=== PATIENT | female | born 1935 | race Caucasian/White ===

== ENCOUNTER → 2018-09-11 08:10 | Outpatient (CLI) | payer MEDICARE, SELFPAY ==
[2018-09-11 08:55] LABS: Hemoglobin A1C% w Est Avg Glu 6.7 % (4.0-6.0)
[2018-09-11 09:14] LABS: Creatinine Urine Random 90.2 mg/dL
[2018-09-11 09:19] LABS: Microalbumi Creatinin Ratio Ur 9.9 ug/mg CR (<30); Microalbumin Urine Random 0.9 mg/dL (0-1.6)
[2018-09-11 09:23] LABS: BUN Creatinine Ratio 14.7 (6-22); Blood Urea Nitrogen 22 mg/dL (7-17); Calcium 9.6 mg/dL (8.4-10.2); Carbon Dioxide 24 mmol/L (22-32); Chloride 107 mmol/L (98-107); Estimated Glomerular Filt Rate 33.2 mL/min (>60); Glucose 120 mg/dL (80-110); HEMOLYSIS < 15 (0-50); Potassium 5.1 mmol/L (3.4-5.1); Sodium 141 mmol/L (137-145)
[2018-09-11 09:44] LABS: TSH w/ Reflex to FT4 1.64 uIU/mL (0.47-4.68)
== END ==
PROVIDERS: PCP Family Medicine; Visit Provider Family Medicine
DX: E11.9 Type 2 diabetes mellitus without complications (principal); R53.82 Chronic fatigue, unspecified
CPT/HCPCS: 36415; 80048; 82043; 82570; 83036; 84443

== ENCOUNTER → 2018-11-10 12:57 | Outpatient (CLI) | payer OTHER, SELFPAY ==
--- NOTE | 2018-11-10 | DI.MG.S_ITS ---
BILATERAL DIGITAL SCREENING MAMMOGRAM 3D/2D WITH CAD POST LUMPECTOMY: 11/10/2018 CLINICAL: Routine screening. Personal history of left breast cancer. Family history of breast cancer. Comparison is made to exams dated: 10/21/2017 mammogram, 10/18/2016 mammogram, and 10/15/2015 mammogram - Located [facility]. The tissue of both breasts is heterogeneously dense. This may lower the sensitivity of mammography. Current study was also evaluated with a Computer Aided Detection (CAD) system. There are benign post operative findings in the left breast. There also are benign calcifications in both breasts. No significant masses, calcifications, or other findings are seen in either breast. There has been no significant interval change. IMPRESSION: There is no mammographic evidence of malignancy. A 1 year screening mammogram is recommended. This exam was interpreted at Station ID: [id number]. NOTE: For mammograms, a report in lay terms will be sent to the patient. Approximately 15% of breast malignancies will not be visualized mammographically. In the management of a palpable breast mass, a negative mammogram must not discourage biopsy of a clinically suspicious lesion. Electronically Signed By: Rojas mercado/marta:11/10/2018 14:07:27 copy to: Huy Christie letter sent: Normal Exam ACR BI-RADS Category 2: Benign Finding(s) 3342F
== END ==
PROVIDERS: PCP Family Medicine; Visit Provider Family Medicine
DX: Z12.31 Encounter for screening mammogram for malignant neoplasm of breast (principal); Z85.3 Personal history of malignant neoplasm of breast; Z80.3 Family history of malignant neoplasm of breast
CPT/HCPCS: 77063; 77067

== ENCOUNTER → 2019-02-20 16:45 | Outpatient (CLI) | payer OTHER, SELFPAY | PROVIDERS: PCP Family Medicine; Visit Provider Nurse Practitioner | DX: R30.0 Dysuria (principal) | CPT/HCPCS: 87077; 87086; 87185; 87186 ==

== ENCOUNTER → 2019-03-07 15:08 | Outpatient (CLI) | payer OTHER, SELFPAY ==
[2019-03-07 15:36] LABS: Add Manual Diff / Slide Review NO; Basophils Absolute Auto 0 /uL (0-100); Basophils Percent Auto 0.5 % (0-2); Eosinophils Absolute Auto 200 /uL (0-450); Eosinophils Percent Auto 2.7 % (2-4); Hemoglobin 12.2 g/dL (12.0-16.0); Lymphocytes Absolute Auto 1200 /uL (1100-4500); Lymphocytes Percent Auto 15.5 % (25-40); Mean Corpuscular Hemoglobin 28.7 PG (26-34); Mean Corpuscular Volume 86.9 fL (80-100); Monocytes Absolute Auto 500 /uL (0-900); Neutrophils Absolute Auto 5700 /uL (1500-7000); Neutrophils Percent Auto 74.3 % (50-75); Platelet Count 188 X10^3/uL (150-400); Red Blood Cell Count 4.26 X10^6/uL (4.0-5.2); Red Cell Distribution Width 13.8 % (11.6-14.8); White Blood Cell Count 7.7 X10^3/uL (4.5-11.0)
[2019-03-07 15:49] LABS: Alanine Aminotransferase 15 IU/L (9-52); Albumin 4.3 g/dL (3.5-5.0); Albumin Globulin Ratio 1.5 (1.0-2.8); Alkaline Phosphatase 54 U/L (38-126); Aspartate Aminotransferase 24 IU/L (14-36); BUN Creatinine Ratio 17.9 (6-22); Bilirubin Total 0.5 mg/dL (0.2-1.3); Blood Urea Nitrogen 34 mg/dL (7-17); Calcium 9.5 mg/dL (8.4-10.2); Carbon Dioxide 22 mmol/L (22-32); Chloride 108 mmol/L (98-107); Creatine Kinase 123 U/L (30-135); Estimated Glomerular Filt Rate 25.2 mL/min (>60); Globulin 2.8 g/dL (1.7-4.1); Glucose 98 mg/dL (80-110); HEMOLYSIS < 15 (0-50); Potassium 4.3 mmol/L (3.4-5.1); Sodium 143 mmol/L (137-145); Total Protein 7.1 g/dL (6.3-8.2)
[2019-03-07 16:01] LABS: Troponin I < 0.012 ng/mL (0.01-0.034)
[2019-03-07 16:05] LABS: CKMB % Relative Index 1.5 % (1.5-5.0); Creatine Kinase MB 1.86 ng/mL (<2.37)
== END ==
PROVIDERS: PCP Family Medicine; Visit Provider Family Medicine
DX: R07.9 Chest pain, unspecified (principal); R94.31 Abnormal electrocardiogram [ECG] [EKG]
CPT/HCPCS: 36415; 80053; 82550; 82553; 84484; 85025

== ENCOUNTER → 2019-07-19 11:57 | Outpatient (CLI) | payer OTHER, SELFPAY ==
[2019-07-19 12:43] LABS: Hemoglobin A1C% w Est Avg Glu 6.2 % (4.0-6.0)
== END ==
PROVIDERS: PCP Family Medicine; Visit Provider Family Medicine
DX: E11.9 Type 2 diabetes mellitus without complications (principal)
CPT/HCPCS: 36415; 83036

== ENCOUNTER → 2020-05-20 14:32 | Outpatient (CLI) | payer OTHER, SELFPAY ==
[2020-05-20 15:47] LABS: Hemoglobin A1C% w Est Avg Glu 6.6 % (4.0-6.0)
[2020-05-20 15:51] LABS: Alanine Aminotransferase 14 IU/L (<35); Albumin 4.4 g/dL (3.5-5.0); Albumin Globulin Ratio 1.6 (1.0-2.8); Alkaline Phosphatase 56 U/L (38-126); Aspartate Aminotransferase 23 IU/L (14-36); Bilirubin Total 0.5 mg/dL (0.2-1.3); Blood Urea Nitrogen 33 mg/dL (7-17); Calcium 9.4 mg/dL (8.4-10.2); Carbon Dioxide 23 mmol/L (22-32); Chloride 108 mmol/L (98-107); Estimated Glomerular Filt Rate 29.6 mL/min (>60); Globulin 2.7 g/dL (1.7-4.1); Glucose 127 mg/dL (80-110); HEMOLYSIS < 15 (0-50); Potassium 4.9 mmol/L (3.4-5.1); Sodium 137 mmol/L (137-145); Total Protein 7.1 g/dL (6.3-8.2)
[2020-05-20 20:10] LABS: Creatinine Urine Random 124.6 mg/dL
[2020-05-20 20:15] LABS: Microalbumi Creatinin Ratio Ur 8.8 ug/mg CR (<30); Microalbumin Urine Random 1.1 mg/dL (0-1.6)
== END ==
PROVIDERS: PCP Family Medicine; Referring Provider Family Medicine; Visit Provider Family Medicine
DX: E11.9 Type 2 diabetes mellitus without complications (principal)
CPT/HCPCS: 36415; 80053; 82043; 82570; 83036

== ENCOUNTER 2020-06-14 19:55 | Emergency (ER) | payer OTHER, SELFPAY ==
[2020-06-14 20:01] VITALS: BP 176/88; PULSE 86; RESP 18; TEMP 36.8; O2SAT 98; BMI 26.7
--- NOTE | 2020-06-14 20:05 | ED_ITS ---
HPI - Eye Problem <SEMAJ Hebert - Last Filed: 06/14/20 21:04> General Chief complaint: Eye Problems Stated complaint: contact stuck in right eye since last night Time Seen by Provider: 06/14/20 19:55 Source: patient Mode of arrival: Ambulatory Limitations: no limitations History of Present Illness HPI Narrative: 84yo female presents emergency department complaining of a contact stuck in her right eye. She states she only wears a contact in her right eye, she has fallen asleep on a chair the past 3 nights without removing her contacts. She went to removed today and was unable to get it out. She states she can still read normally so she thinks it is still in there. Patient states she has been irrigating the eye with saline a which has decreased the redness but she is still unable to get the contact out. Patient denies any fevers, chills, double vision, blurry vision, eye discharge, cough, shortness of breath, or any other concerns. Related Data Home Medications Medication Instructions Recorded Confirmed [CoQ10] #0 08/30/16 05/20/20 [MELATONIN] #0 08/30/16 05/20/20 azelastine 0.15 % (205.5 mcg) 1 spray NASAL BID 01/10/19 05/20/20 nasal spray omeprazole PO BID 01/10/19 05/20/20 triamcinolone acetonide 55 mcg 1 spray NASAL BID ml 01/10/19 05/20/20 nasal spray aerosol albuterol sulfate 90 mcg/actuation 1 puff INHALATION Q6H PRN 10/17/19 05/20/20 aerosol inhaler aspirin 81 mg tablet,delayed 81 mg PO DAILY 05/20/20 05/20/20 release Previous Rx's Medication Instructions Recorded blood sugar diagnostic #60 strip 07/13/19 rosuvastatin 10 mg tablet 10 mg PO DAILY #90 tab 02/22/20 metformin 500 mg tablet,extended See Rx Instructions .ROUTE 06/11/20 release 24 hr .COMPLEX #180 tab tobramycin 4 drop EAR-RIGHT QID 5 Days #5 ml 06/14/20 Allergies Allergy/AdvReac Type Severity Reaction Status Date / Time No Known Drug Allergies Allergy Verified 05/20/20 13:32 Review of Systems <SEMAJ Hebert - Last Filed: 06/14/20 21:04> Review of Systems Narrative: REVIEW OF SYSTEMS: GENERAL: Denies fever or chills. HENT: No head trauma. EYES: Complains contact and right eye, see HPI. NECK/LYMPHATIC: No lymphadenopathy. CARDIOVASCULAR: No chest pain. RESPIRATORY: No cough or shortness of breath. INTEGUMENTARY: No rash, lesions, or pruritus. NEURO: No headaches or confusion. Patient History <SEMAJ Hebert - Last Filed: 06/14/20 21:04> Medical History Asthma (Chronic) Chicken pox (Resolved) Depression (Inactive) DM type 2 (diabetes mellitus, type 2) (Chronic) Foot pain (Resolved) Hyperlipidemia (Chronic) Measles (Resolved) Measles (Resolved) Mumps (Inactive) Mumps (Resolved) Seasonal allergies (Chronic) Shoulder pain (Resolved) Varicella (Resolved) Vision disorder (Chronic) Surgical History Anesthesia (Resolved) H/O knee surgery (Resolved) History of hip surgery (Resolved) Hx of breast cancer (Inactive) Family History Father Heart disease Mother Cancer Stroke Dementia Brother COPD (chronic obstructive pulmonary disease) Diabetes mellitus Stroke Dementia Brother Stroke Diabetes mellitus Social History marital status: number of children: 2 household members: spouse lives independently: Yes caregiver/support person: No pets and animals: No education level: college (some college) occupational status: previously employed (retired) current occupational exposures/hazards: No raul/sabianist: [employer] special raul needs: No leisure activities: art seatbelt use: always working smoke detector in home: Yes fire extinguisher in home: No carbon monox detector in home: No firearms in home: Yes firearms unloaded and locked: Yes do you feel safe at home: Yes Smoking Status: Never smoker alcohol intake: current (rare) substance use type: does not use during the past year weight has: increased > 10 lbs well-balanced diet: daily or most days caffeine: Yes eating out: 1-3 times/week Type(s) of exercise: walking frequency: 5-6 times per week duration: 30-45 minutes/day Smoking Status: Never smoker alcohol intake frequency: holidays/special occasions only Alcohol type: wine Substance Use Type: does not use Exam <SEMAJ Hebert - Last Filed: 06/14/20 21:04> Initial Vital Signs Initial Vital Signs: Vital Signs Temperature 98.3 F 06/14/20 20:01 Pulse Rate 86 06/14/20 20:01 Respiratory Rate 18 06/14/20 20:01 Blood Pressure 176/88 H 06/14/20 20:01 Pulse Oximetry 98 06/14/20 20:01 PHYSICAL EXAMINATION: GENERAL: Well groomed, alert, and cooperative. Answers questions promptly and appropriately. Vital signs noted. HENT: Normocephalic, atraumatic. Hearing intact. Oral mucosa is pink and moist. Face features symmetrical. EYES: PERRLA, EOMIs, right conjunctiva mildly injected, small possible corneal abrasion noted at approximately 11:00 0'clock with fluorescein examination. Left eye within normal limits. CARDIOVASCULAR: Regular rate. RESPIRATORY: Normal respiratory rate, trachea midline, airway patent. No stridor, nasal flaring or accessory muscle use. MUSCULOSKELETAL: Normal gait and coordination. Equal tone and mass bilaterally. SKIN: Warm, dry, soft, appropriate color for ethnicity. NEURO: Alert and Oriented X 3. Good coordination. PSYCH: Appropriate affect and mood. <Gato Mendes DO - Last Filed: 06/15/20 01:09> Initial Vital Signs Initial Vital Signs: Vital Signs Temperature 98.3 F 06/14/20 20:01 Pulse Rate 86 06/14/20 20:01 Respiratory Rate 18 06/14/20 20:01 Blood Pressure 176/88 H 06/14/20 20:01 Pulse Oximetry 98 06/14/20 20:01 Course <SEMAJ Hebert - Last Filed: 06/14/20 21:04> Orders Ordered: Discontinued Medications Fluorescein Sodium (Ful-Arlin) 1 mg EYE-RIGHT NOW ONE Stop: 06/14/20 20:05 Last Admin: 06/14/20 20:12 Dose: 1 mg Documented by: TOMMY Gentamicin Sulfate (Garamycin Ophth Soln) 1 drops EYE-RIGHT NOW ONE Stop: 06/14/20 20:25 Last Admin: 06/14/20 20:28 Dose: Not Given Documented by: TOMMY Gentamicin Sulfate (Garamycin 0.3% Ophth Prepack) 1 bottle MISC SEEINSTR ONE Stop: 06/14/20 20:28 Last Admin: 06/14/20 20:31 Dose: 1 bottle Documented by: TOMMY Proparacaine HCl (Parcaine 0.5% Ophth Christy) 1 drops EYE-RIGHT NOW ONE Stop: 06/14/20 20:05 Last Admin: 06/14/20 20:13 Dose: 1 drop Documented by: TOMMY Tobramycin Sulfate (Tobramycin) 2 drops EYE-RIGHT NOW ONE Stop: 06/14/20 20:18 Last Admin: 06/14/20 20:27 Dose: Not Given Documented by: TOMMY Vital Signs Vital signs: Vital Signs - 8 hr 06/14/20 20:01 Temperature 98.3 F Pulse Rate 86 Respiratory Rate 18 Blood Pressure 176/88 H Pulse Oximetry 98 <Gato Mendes DO - Last Filed: 06/15/20 01:09> Orders Ordered: Discontinued Medications Fluorescein Sodium (Ful-Arlin) 1 mg EYE-RIGHT NOW ONE Stop: 06/14/20 20:05 Last Admin: 06/14/20 20:12 Dose: 1 mg Documented by: TOMMY Gentamicin Sulfate (Garamycin Ophth Soln) 1 drops EYE-RIGHT NOW ONE Stop: 06/14/20 20:25 Last Admin: 06/14/20 20:28 Dose: Not Given Documented by: TOMMY Gentamicin Sulfate (Garamycin 0.3% Ophth Prepack) 1 bottle MISC SEEINSTR ONE Stop: 06/14/20 20:28 Last Admin: 06/14/20 20:31 Dose: 1 bottle Documented by: TOMMY Proparacaine HCl (Parcaine 0.5% Ophth Christy) 1 drops EYE-RIGHT NOW ONE Stop: 06/14/20 20:05 Last Admin: 06/14/20 20:13 Dose: 1 drop Documented by: TOMMY Tobramycin Sulfate (Tobramycin) 2 drops EYE-RIGHT NOW ONE Stop: 06/14/20 20:18 Last Admin: 06/14/20 20:27 Dose: Not Given Documented by: TOMMY Vital Signs Vital signs: Vital Signs - 8 hr 06/14/20 20:01 Temperature 98.3 F Pulse Rate 86 Respiratory Rate 18 Blood Pressure 176/88 H Pulse Oximetry 98 [facility] - Eye Problem <SEMAJ Hebert - Last Filed: 06/14/20 21:04> Medical Records Attestation: I reviewed the patient's medical records. Lab Data Attestation: I reviewed the patient's lab results. MDM Narrative Medical decision making narrative: 84-year-old female presents to the ED with concerns of a contact being stuck in her right eye. Contact removed manually. Concerns for corneal abrasion with fluorescein examination, patient started on gentamicin as this was available in the facility at this time. No concerns for ocular cellulitis given lack of discharge and EOM intact. Patient was encouraged to follow up with the eye doctor in the next week. Return precautions given for new or worsening symptoms. She agrees to plan of care verbalized understanding. Discharge Plan Departure Patient Disposition: Home Clinical Impression: Abrasion, corneal Qualifiers: Encounter type: initial encounter Laterality: right Qualified Code(s): S05.01XA - Injury of conjunctiva and corneal abrasion without foreign body, right eye, initial encounter Discharge Date/Time: 06/14/20 20:49 Instructions: DI for Corneal Abrasion Activity Restrictions/Additional Instructions: Thank you for entrusting me with your care today. As discussed, your contact was removed. Your exam was concerning for a corneal abrasion. I have given you antibiotic drops, please use this as directed. Do not wear contacts for the next 1-2 weeks. Your prescription was sent to [facility] in [place]. Follow up with your eye doctor in the next week, call them on Tuesday for an appointment. Return emergency department for any new or worsening symptoms. Prescriptions: New tobramycin 0.3 % drops 4 drop EAR-RIGHT QID 5 Days Qty: 5 RF: 0 No Action omeprazole PO BID RF: 0 azelastine 0.15 % (205.5 mcg) spray,non-aerosol 1 spray NASAL BID RF: 0 triamcinolone acetonide [Nasacort] 55 mcg aerosol,spray 1 spray NASAL BID RF: 0 aspirin [Adult Aspirin Regimen] 81 mg tablet,delayed release (DR/EC) 81 mg PO DAILY RF: 0 [CoQ10] Qty: 0 RF: 0 [MELATONIN] Qty: 0 RF: 0 (DME) [employer] test strips Strip See Dose Instructions .ROUTE .MEDSUPPLY Qty: 60 RF: 5 rosuvastatin [Crestor] 10 mg tablet 10 mg PO DAILY Qty: 90 RF: 1 metformin 500 mg tablet extended release 24 hr See Rx Instructions .ROUTE .COMPLEX Qty: 180 RF: 3 albuterol sulfate [ProAir HFA] 90 mcg/actuation HFA aerosol inhaler 1 puff INHALATION Q6H PRNRF: 0 Referrals: Nusrat Abdi MD [Primary Care Provider] - <Gato Mendes DO - Last Filed: 06/15/20 01:09> Cosign ED Attending Cosignature Attestation: I was immediately available in the department for consultation. This documentation has been reviewed and I agree with assessment and plan. Supervised by Gato Mendes DO
[2020-06-14] MEDS: FLUORESCEIN 1 MG STRIP EYE-RIGHT (20:12)
[2020-06-14] MEDS: PROPARACAINE 0.5% OPHTH SOL 1 DROPS EYE-RIGHT (20:13)
[2020-06-14] MEDS: GENTAMICIN 0.3% OPHTH PREPACK 1 BOTTLE MISC (20:31)
== END 2020-06-14 20:49 | disposition home or self-care (01) ==
PROVIDERS: Emergency Provider Nurse Practitioner; PCP Family Medicine
DX: S05.01XA Injury of conjunctiva and corneal abrasion without foreign body, right eye, initial encounter (principal)
CPT/HCPCS: 99282

== ENCOUNTER → 2020-07-15 13:59 | Outpatient (CLI) | payer OTHER, SELFPAY ==
[2020-07-17 07:27] LABS: COVID19 Sendout Not Detected (Not Detect)
== END ==
PROVIDERS: PCP Family Medicine; Visit Provider Physician Assistant
DX: J02.9 Acute pharyngitis, unspecified (principal); R05 Cough
CPT/HCPCS: 87635

== ENCOUNTER → 2020-11-12 15:14 | Outpatient (CLI) | payer OTHER, SELFPAY ==
[2020-11-12 16:06] LABS: Appearance Urine UA SL CLOUDY; Bilirubin Urine UA NEGATIVE (NEGATIVE); Color Urine UA YELLOW; Glucose Urine UA NEGATIVE (Negative); Ketones Urine UA NEGATIVE (NEGATIVE); Leukocyte Esterase Urine UA 3+ (NEGATIVE); Nitrite Urine UA NEGATIVE (Negative); Occult Blood Urine UA TRACE-LYSED (Negative); Protein Urine UA NEGATIVE (Negative); Urobilinogen Urine UA 0.2 E.U./dL (0.2)
[2020-11-12 16:09] LABS: Hemoglobin A1C% w Est Avg Glu 6.8 % (4.0-6.0)
[2020-11-12 16:18] LABS: Bacteria Urine Many (>30); Culture Indicated Urine Specimen Cultured; RBC Urine 0-1/HPF (0-5/HPF); Squamous Epithelial Cell Urine 0-1 /HPF (0-5/HPF); WBC Urine 10-30/HPF (0-5/HPF)
== END ==
PROVIDERS: PCP Family Medicine; Referring Provider Family Medicine; Visit Provider Family Medicine
DX: E11.9 Type 2 diabetes mellitus without complications (principal); R30.0 Dysuria
CPT/HCPCS: 36415; 81001; 83036; 87077; 87086; 87186

== ENCOUNTER → 2020-11-19 13:14 | Outpatient (CLI) | payer MEDICARE, SELFPAY ==
[2020-11-19] MEDS: COVID-19 VACC, Ad26(JANSSEN)/PF 0.5 ML IM (13:33)
== END ==
PROVIDERS: PCP Family Medicine; Visit Provider Internal Medicine
DX: Z23 Encounter for immunization (principal)
CPT/HCPCS: 0031A; 91303

== ENCOUNTER → 2020-12-01 11:01 | Outpatient (CLI) | payer OTHER, SELFPAY | PROVIDERS: PCP Family Medicine; Referring Provider Family Medicine; Visit Provider Family Medicine | DX: Z12.31 Encounter for screening mammogram for malignant neoplasm of breast (principal); Z53.20 Procedure and treatment not carried out because of patient's decision for unspecified reasons ==

== ENCOUNTER → 2020-12-09 12:08 | Outpatient (CLI) | payer OTHER, SELFPAY ==
[2020-12-09 13:01] LABS: Hemoglobin A1C% w Est Avg Glu 6.7 % (4.0-6.0)
== END ==
PROVIDERS: PCP Family Medicine; Referring Provider Family Medicine; Visit Provider Family Medicine
DX: E11.9 Type 2 diabetes mellitus without complications (principal)
CPT/HCPCS: 36415; 83036

== ENCOUNTER → 2021-01-01 10:35 | Outpatient (CLI) | payer OTHER, SELFPAY ==
--- NOTE | 2021-01-01 | DI.MG.S_ITS ---
BILATERAL DIGITAL SCREENING MAMMOGRAM 3D/2D WITH CAD: 01/01/2021 CLINICAL: Routine screening. Family history of breast cancer. Comparison is made to exams dated: 11/10/2018 mammogram, 10/21/2017 mammogram, and 10/18/2016 mammogram - [facility]. The tissue of both breasts is heterogeneously dense. This may lower the sensitivity of mammography. Current study was also evaluated with a Computer Aided Detection (CAD) system. There are benign calcifications in both breasts. There also are benign post operative findings in the left breast. No significant masses, calcifications, or other findings are seen in either breast. There has been no significant interval change. IMPRESSION: BENIGN There is no mammographic evidence of malignancy. A 1 year screening mammogram is recommended. This exam was interpreted at Station ID: [id number]. NOTE: For mammograms, a report in lay terms will be sent to the patient. Approximately 15% of breast malignancies will not be visualized mammographically. In the management of a palpable breast mass, a negative mammogram must not discourage biopsy of a clinically suspicious lesion. Electronically Signed By: Mahesh Gonzales acr/penrad:01/01/2021 12:12:10 copy to: Huy Christie letter sent: Normal Exam ACR BI-RADS Category 2: Benign Finding(s) 3342F
== END ==
PROVIDERS: PCP Family Medicine; Referring Provider Family Medicine; Visit Provider Family Medicine
DX: Z12.31 Encounter for screening mammogram for malignant neoplasm of breast (principal)
CPT/HCPCS: 77063; 77067

== ENCOUNTER → 2021-09-14 11:23 | Outpatient (CLI) | payer OTHER, SELFPAY ==
[2021-09-14 12:31] LABS: Hemoglobin A1C% w Est Avg Glu 6.3 % (4.0-6.0)
[2021-09-14 13:18] LABS: Alanine Aminotransferase 18 IU/L (<35); Albumin 4.3 g/dL (3.5-5.0); Albumin Globulin Ratio 1.8 (1.0-2.8); Alkaline Phosphatase 53 U/L (38-126); Aspartate Aminotransferase 23 IU/L (14-36); BUN Creatinine Ratio 17.8 (6-22); Bilirubin Total 0.5 mg/dL (0.2-1.3); Blood Urea Nitrogen 28 mg/dL (7-17); Calcium 9.8 mg/dL (8.4-10.2); Carbon Dioxide 23 mmol/L (22-32); Chloride 106 mmol/L (98-107); Estimated Glomerular Filt Rate 31.3 mL/min (>60); Globulin 2.4 g/dL (1.7-4.1); Glucose 109 mg/dL (80-110); HEMOLYSIS < 15 (0-50); Potassium 4.7 mmol/L (3.4-5.1); Sodium 139 mmol/L (137-145); Total Protein 6.7 g/dL (6.3-8.2)
[2021-09-14 15:09] LABS: Creatinine Urine Random 133.9 mg/dL
[2021-09-14 15:11] LABS: Microalbumi Creatinin Ratio Ur 22.4 ug/mg CR (<30)
== END ==
PROVIDERS: PCP Family Medicine; Referring Provider Family Medicine; Visit Provider Family Medicine
DX: E11.9 Type 2 diabetes mellitus without complications (principal)
CPT/HCPCS: 36415; 80053; 82043; 82570; 83036

== ENCOUNTER → 2022-01-07 12:58 | Outpatient (CLI) | payer OTHER, SELFPAY ==
--- NOTE | 2022-01-07 | DI.MG.S_ITS ---
BILATERAL DIGITAL SCREENING MAMMOGRAM 3D/2D WITH CAD: 01/07/2022 CLINICAL: Routine screening. Personal history of left breast cancer. Family history of breast cancer. Comparison is made to exams dated: 01/01/2021 mammogram, 11/10/2018 mammogram, and 10/21/2017 mammogram - [facility]. The tissue of both breasts is heterogeneously dense. This may lower the sensitivity of mammography. Current study was also evaluated with a Computer Aided Detection (CAD) system. There are benign calcifications in both breasts. There also are benign post operative findings in the left breast. No significant masses, calcifications, or other findings are seen in either breast. There has been no significant interval change. IMPRESSION: BENIGN There is no mammographic evidence of malignancy. A 1 year screening mammogram is recommended. This exam was interpreted at Station ID: [id number]. NOTE: For mammograms, a report in lay terms will be sent to the patient. Approximately 15% of breast malignancies will not be visualized mammographically. In the management of a palpable breast mass, a negative mammogram must not discourage biopsy of a clinically suspicious lesion. Electronically Signed By: Rojas mercado/marta:01/07/2022 14:02:11 copy to: Huy Christie letter sent: Normal Exam ACR BI-RADS Category 2: Benign Finding(s) 3342F
== END ==
PROVIDERS: PCP Family Medicine; Referring Provider Family Medicine; Visit Provider Family Medicine
DX: Z12.31 Encounter for screening mammogram for malignant neoplasm of breast (principal); Z85.3 Personal history of malignant neoplasm of breast; Z80.3 Family history of malignant neoplasm of breast
CPT/HCPCS: 77063; 77067

== ENCOUNTER 2022-09-07 10:05 | Emergency (ER) | payer OTHER, SELFPAY ==
[2022-09-07 10:23] VITALS: BP 148/82; PULSE 87; RESP 15; TEMP 36.3; O2SAT 97; BMI 21.4
--- NOTE | 2022-09-07 10:26 | DI.RAD.S_ITS ---
PROCEDURE: XR CHEST 1V INDICATIONS: Chest pain TECHNIQUE: One view of the chest was acquired. COMPARISON: None. FINDINGS: Surgical changes and devices: None. Lungs and pleura: Lungs are clear. No pleural effusions or pneumothorax. Mediastinum: Moderate hiatal hernia. Mediastinal contours appear normal. Heart size is normal. Bones and chest wall: No suspicious bony lesions. Overlying soft tissues appear unremarkable. IMPRESSION: Moderate hiatal hernia. No acute finding. Dictated by: Dejon Campbell M.D. on 09/07/2022 at 10:55 Approved by: Dejon Campbell M.D. on 09/07/2022 at 10:55
--- NOTE | 2022-09-07 10:27 | DI.RAD.S_ITS ---
PROCEDURE: XR HUMERUS LT 2V INDICATIONS: Left arm pain TECHNIQUE: 2 views of the humerus were acquired. COMPARISON: None. FINDINGS: Bones: No fractures or dislocations. No suspicious bony lesions. Severe left glenohumeral joint space narrowing with flattening of the articular surfaces along with both subchondral cystic change and sclerosis indicative of severe osteoarthritis. Soft tissues: No suspicious soft tissue calcifications. IMPRESSION: No acute finding. Severe left glenohumeral osteoarthritis. Dictated by: Dejon Campbell M.D. on 09/07/2022 at 10:54 Approved by: Dejon Campbell M.D. on 09/07/2022 at 10:55
[2022-09-07 10:53] LABS: Add Manual Diff / Slide Review NO; Basophils Absolute Auto 100 /uL (0-100); Basophils Percent Auto 1.4 % (0-2); Eosinophils Absolute Auto 100 /uL (0-450); Eosinophils Percent Auto 1.8 % (2-4); Hematocrit 40.2 % (36-46); Hemoglobin 13.3 g/dL (12.0-16.0); Lymphocytes Absolute Auto 1100 /uL (1100-4500); Lymphocytes Percent Auto 16.8 % (25-40); Mean Corpuscular HGB Conc 33.1 % (30-36); Mean Corpuscular Hemoglobin 28.9 PG (26-34); Mean Corpuscular Volume 87.1 fL (80-100); Monocytes Absolute Auto 400 /uL (0-900); Monocytes Percent Auto 6.9 % (3-14); Neutrophils Absolute Auto 4700 /uL (1500-7000); Neutrophils Percent Auto 73.1 % (50-75); Platelet Count 208 X10^3/uL (150-400); Red Blood Cell Count 4.62 X10^6/uL (4.0-5.2); Red Cell Distribution Width 14.5 % (11.6-14.8); White Blood Cell Count 6.4 X10^3/uL (4.5-11.0)
[2022-09-07 11:06] LABS: Prothrombin Time 11.6 SECONDS (10.1-12.7)
[2022-09-07 11:09] LABS: PTT Partial Thromboplastin Tim 28 SECONDS (26-36)
[2022-09-07 11:13] LABS: Alanine Aminotransferase 15 IU/L (<35); Albumin 4.2 g/dL (3.5-5.0); Albumin Globulin Ratio 1.4 (1.0-2.8); Alkaline Phosphatase 54 U/L (38-126); Aspartate Aminotransferase 19 IU/L (14-36); BUN Creatinine Ratio 15.9 (6-22); Bilirubin Total 0.3 mg/dL (0.2-1.3); Blood Urea Nitrogen 26 mg/dL (7-17); Calcium 9.1 mg/dL (8.4-10.2); Carbon Dioxide 21 mmol/L (22-32); Chloride 110 mmol/L (98-107); Creatine Kinase 63 U/L (30-135); Estimated Glomerular Filt Rate 30 mL/min (>60); Glucose 84 mg/dL (80-110); HEMOLYSIS < 15 (0-50); Lipase 169 U/L (23-300); Magnesium 1.7 mg/dL (1.6-2.3); Potassium 4.5 mmol/L (3.4-5.1); Sodium 143 mmol/L (137-145); Total Protein 7.2 g/dL (6.3-8.2)
[2022-09-07 11:23] LABS: Troponin I < 0.012 ng/mL (0.01-0.034)
[2022-09-07 14:56] VITALS: BP 124/62; PULSE 74; O2SAT 99
--- NOTE | 2022-09-07 15:03 | ED_ITS ---
HPI - Extremity Problem General Chief complaint: Extremity Problem,Nontraumatic Stated complaint: Lt arm/shoulder pain Time Seen by Provider: 09/07/22 14:24 Source: patient Mode of arrival: Ambulatory History of Present Illness HPI Narrative: Patient here for reproducible left neck pain that radiates to the left mid upper arm. No hand pain or numbness tingling or weakness to the hand or forearm. Patient denies denies any chest pain or dyspnea. Increased pain with tilting her head up or to the right. This pain will shoot down her left arm as well. Patient states this problem off and on for the past 1 year however yesterday it occurred again and has not resolved. It has been persistent. Denies any coronary artery disease problems. Again, this pain is reproducible and has no complaints of chest pain Related Data Home Medications Medication Instructions Recorded Confirmed [CoQ10] ##0 08/30/16 09/16/22 [MELATONIN] ##0 08/30/16 09/16/22 aspirin 81 mg tablet,delayed 81 mg PO DAILY 05/20/20 09/16/22 release (Adult Aspirin Regimen) Previous Rx's Medication Instructions Recorded Blood Glucose Meter #1 ea 01/02/21 Blood Glucose Test Strips #60 ea 01/02/21 Lancets #60 ea 01/02/21 metformin 500 mg tablet,extended See Rx Instructions .Route 08/25/21 release 24 hr .COMPLEX #180 tabs omeprazole 20 mg capsule,delayed 20 mg PO BID #180 caps 10/09/21 release rosuvastatin 10 mg tablet See Rx Instructions .Route 10/27/21 .COMPLEX #90 tabs donepezil 5 mg tablet 10 mg PO BEDTIME #180 tabs 12/23/21 lidocaine 5 % topical patch 1 patch topical DAILY PRN hip pain 03/22/22 #30 ea sertraline 50 mg tablet 50 mg PO DAILY #90 tabs 04/06/22 trazodone 50 mg tablet See Rx Instructions .Route 04/06/22 .COMPLEX #30 tabs azelastine 137 mcg (0.1 %) nasal 1 spray intranasal BID #30 mL 05/11/22 spray aerosol memantine 5 mg tablet 5 mg PO QAM #30 tabs 09/16/22 Allergies Allergy/AdvReac Type Severity Reaction Status Date / Time No Known Drug Allergies Allergy Verified 09/07/22 10:23 Review of Systems Review of Systems Narrative: GENERAL: negative chills, fatigue, malaise, fever, sweats. HEENT: negative sinus pain, ear pain, sore throat RESPIRATORY: negative dyspnea, cough CARDIOVASCULAR: negative chest pain, palpitations GASTROINTESTINAL: negative nausea, vomiting, abdominal pain : negative dysuria, frequency, hematuria MUSCULOSKELETAL: Positive muscle or bony pain SKIN: negative rash, skin lesions NEUROLOGIC: negative weakness, numbness ROS Unobtainable: All systems reviewed & are unremarkable except as noted in HPI and below Patient History Medical History Asthma Chicken pox Dementia Depression DM type 2 (diabetes mellitus, type 2) Foot pain Hyperlipidemia Measles Measles Mumps Mumps Seasonal allergies Shoulder pain Varicella Vision disorder Surgical History Anesthesia H/O knee surgery History of hip surgery Hx of breast cancer Family History Father Heart disease Mother Cancer Stroke Dementia Brother COPD (chronic obstructive pulmonary disease) Diabetes mellitus Stroke Dementia Brother Stroke Diabetes mellitus Social History marital status: number of children: 2 household members: spouse lives independently: Yes caregiver/support person: No pets and animals: No education level: college occupational status: previously employed current occupational exposures/hazards: No raul/muslim: Yazidism special raul needs: No leisure activities: art seatbelt use: always working smoke detector in home: Yes fire extinguisher in home: No carbon monox detector in home: No firearms in home: Yes firearms unloaded and locked: Yes do you feel safe at home: Yes Smoking Status: Never smoker alcohol intake: current substance use type: does not use during the past year weight has: increased > 10 lbs well-balanced diet: daily or most days caffeine: Yes eating out: 1-3 times/week Type(s) of exercise: walking frequency: 5-6 times per week duration: 30-45 minutes/day Smoking Status: Never smoker alcohol intake frequency: holidays/special occasions only Alcohol type: wine Substance Use Type: does not use Exam Narrative Exam Narrative: GENERAL: in no distress, not toxic not dyspneic HEAD: Normocephalic. EYES: Pupils equal round No scleral icterus. ENT: Mucous membranes moist. NECK: Trachea midline. There is reproducible left mid lateral neck tenderness. No midline tenderness or step-off. Increased pain with turning head to the right and also pain with tilting head up. This causes left-sided neck pain that radiates down to the left arm. CARDIOVASCULAR: Regular rate and rhythm without murmurs RESPIRATORY: Clear to auscultation. Breath sounds equal bilaterally. No wheezes, rales, or rhonchi. GASTROINTESTINAL: Abdomen soft, non-tender EXTREMITIES: No gross deformities. Examination left upper extremity nontender shoulder elbow and wrist with strong cigarette carton sealer and radial pulse and light touch intact to thumb and fingers. There is some left neck pain when she raises her left hand above her head. NEURO: AOx4. SKIN: Warm and dry PSYCH: Not anxious, is cooperative Initial Vital Signs Initial Vital Signs: Vital Signs Temperature 97.3 F L 09/07/22 10:23 Pulse Rate 87 09/07/22 10:23 Respiratory Rate 15 09/07/22 10:23 Blood Pressure 148/82 H 09/07/22 10:23 Pulse Oximetry 97 09/07/22 10:23 Oxygen Delivery Method 09/07/22 10:23 Course Course Course Narrative: No new issues during course of stay Orders Ordered: Discontinued Medications Ketorolac Tromethamine (Ketorolac 30 Mg/Ml Vial) 15 mg IM NOW ONE Stop: 09/07/22 15:31 Last Admin: 09/07/22 15:43 Dose: 15 mg Documented By: ERI Reevaluation(s) Reevaluation #1: Reviewed results with patient. At this time still no chest pain. She does agree for adding on x-ray of the neck in trying Toradol for pain. Renal function noted but 1 time dose would be appropriate. Time: 15:18 Reevaluation #2: Reviewed results with patient of x-ray of the cervical spine. Her pain in the neck has improved after Toradol. Return precautions reviewed with her. She desires discharge home. She will follow up with the primary care for physical therapy referral as well as MRI of the cervical spine Time: 17:41 Vital Signs Vital signs: Vital Signs - 8 hr 09/07/22 10:23 09/07/22 14:56 09/07/22 15:44 Temperature 97.3 F L Pulse Rate 87 74 86 Respiratory Rate 15 16 Blood Pressure 148/82 H 124/62 147/79 H Pulse Oximetry 97 99 97 Oxygen Delivery Method Room Air Room Air Room Air MDM - Extremity (Nontraumatic) Differential Diagnosis Differential diagnosis: Likely other (Atypical chest pain/CAD/cervical radiculopathy) Lab Data Result diagrams: 09/07/22 10:43 09/07/22 10:43 Labs: Lab Results 09/07/22 09/07/22 09/07/22 Range/Units 10:43 10:43 10:43 WBC 6.4 (4.5-11.0) X10^3/uL RBC 4.62 (4.0-5.2) X10^6/uL Hgb 13.3 (12.0-16.0) g/dL Hct 40.2 (36-46) % MCV 87.1 (80-100) fL MCH 28.9 (26-34) PG MCHC 33.1 (30-36) % RDW 14.5 (11.6-14.8) % Plt Count 208 (150-400) X10^3/uL Neut % (Auto) 73.1 (50-75) % Lymph % (Auto) 16.8 L (25-40) % [place] % (Auto) 6.9 (3-14) % Eos % (Auto) 1.8 L (2-4) % Baso % (Auto) 1.4 (0-2) % Neut # (Auto) 4700 (6136-7838) /uL Lymph # (Auto) 1100 (4047-4753) /uL [place] # (Auto) 400 (0-900) /uL Eos # (Auto) 100 (0-450) /uL Baso # (Auto) 100 (0-100) /uL PT 11.6 (10.1-12.7) SECONDS INR 1.0 (0.9-1.3) APTT 28 (26-36) SECONDS Sodium 143 (137-145) mmol/L Potassium 4.5 (3.4-5.1) mmol/L Chloride 110 H (98-107) mmol/L Carbon Dioxide 21 L (22-32) mmol/L BUN 26 H (7-17) mg/dL Creatinine 1.64 H (0.52-1.04) mg/dL Estimated GFR 30 L (>60) mL/min BUN/Creatinine Ratio 15.9 (6-22) Glucose 84 (80-110) mg/dL Calcium 9.1 (8.4-10.2) mg/dL Magnesium 1.7 (1.6-2.3) mg/dL Total Bilirubin 0.3 (0.2-1.3) mg/dL AST 19 (14-36) IU/L ALT 15 (<35) IU/L Alkaline Phosphatase 54 (38-126) U/L Total Creatine Kinase 63 (30-135) U/L CK-MB (CK-2) TNP CK-MB (CK-2) Rel Index TNP Troponin I < 0.012 (0.01-0.034) ng/mL Total Protein 7.2 (6.3-8.2) g/dL Albumin 4.2 (3.5-5.0) g/dL Globulin 3.0 (1.7-4.1) g/dL Albumin/Globulin Ratio 1.4 (1.0-2.8) Lipase 169 (23-300) U/L Imaging Data Chest x-ray: Radiologist's Impression: [address] [address] XRay Report Signed Patient: Lucinda Bell MR#: [id number] : 1935 Acct:[id number] Age/Sex: 86 / F Date of Service: 09/07/22 Loc: ED Accession Number: [id number] ?? Procedure: XR chest 1V Ordering Provider: Kiran Valverde MD PROCEDURE:? XR CHEST 1V ? INDICATIONS:? Chest pain ? TECHNIQUE:? One view of the chest was acquired.? ? COMPARISON:? None. ? FINDINGS:? ? Surgical changes and devices:? None.? ? Lungs and pleura:? Lungs are clear.? No pleural effusions or pneumothorax.? ? Mediastinum:? Moderate hiatal hernia.? Mediastinal contours appear normal.? Heart size is normal.? ? Bones and chest wall:? No suspicious bony lesions.? Overlying soft tissues appear unremarkable.? ? IMPRESSION:? Moderate hiatal hernia.? No acute finding. ? ? Dictated by: Dejon Campbell M.D. on 09/07/2022 at 10:55 ? ? Approved by: Dejon Campbell M.D. on 09/07/2022 at 10:55 ? Extremity x-ray #1: Radiologist's Impression: [place] [address] XRay Report Signed Patient: Lucinda Bell MR#: [id number] : 1935 Acct:[id number] Age/Sex: 86 / F Date of Service: 09/07/22 Loc: ED Accession Number: [id number] ?? Procedure: XR humerus LT 2V Ordering Provider: Kiran Valverde MD PROCEDURE:? XR HUMERUS LT 2V ? INDICATIONS:? Left arm pain ? TECHNIQUE:? 2 views of the humerus were acquired.? ? COMPARISON:? None. ? FINDINGS:? ? Bones:? No fractures or dislocations.? No suspicious bony lesions.? Severe left glenohumeral joint space narrowing with flattening of the articular surfaces along with both subchondral cystic change and sclerosis indicative of severe osteoarthritis. ? Soft tissues:? No suspicious soft tissue calcifications.? ? IMPRESSION:? No acute finding.? Severe left glenohumeral osteoarthritis. ? ? Dictated by: Dejon Campbell M.D. on 09/07/2022 at 10:54 ? ? Approved by: Dejon Campbell M.D. on 09/07/2022 at 10:55 ? X-ray cervical spine: Radiologist's Impression: [place] [address] XRay Report Signed Patient: Lucinda Bell MR#: [id number] : 1935 Acct:[id number] Age/Sex: 86 / F Date of Service: 09/07/22 Loc: ED Accession Number: [id number] ?? Procedure: XR cervical spine 2V or 3V Ordering Provider: Kiran Valverde MD PROCEDURE:? XR CERVICAL SPINE 2V OR 3V ? INDICATIONS:? left side pain ? TECHNIQUE:? 3 view(s) of the cervical spine were acquired.? ? COMPARISON:? None. ? FINDINGS:? ? Bones:? No fractures or dislocations to the T1 level.? There is trace, 3 mil limeters of C 3-C4 and 2 millimeters of C4-C5 anterolisthesis.? The lateral masses of C1 appear intact on the odontoid view.? No suspicious bony lesions.? Severe C5-C6 degenerative disc disease.? Mild C2-C3, C3-C4, C4-C5 degenerative disc disease.? Moderate C3-C4 facet hypertrophy.? Mild facet hypertrophy through the remainder of the cervical spine. ? Soft tissues:? No prevertebral soft tissue swelling.? ? ? IMPRESSION:? ? 1. Multilevel degenerative disc disease. ? 2. Multilevel facet arthropathy. ? 3. No fracture. No acute osseous lesion. If symptoms and/or clinical suspicion for pathology persists, evaluation with MRI should be considered for further assessment. ? ? Dictated by: Jasmyne Crisostomo MD, PhD on 09/07/2022 at 15:39 ? ? Approved by: Jasmyne Crisostomo MD, PhD on 09/07/2022 at 15:41 ? ECG Data Interpretation: Normal sinus rhythm rate [address] elevation or depression. MDM Narrative Medical decision making narrative: Appropriate for discharge home. Pain is reducible on rotating the head and tilting the head and it does radiate down to the left arm. X-ray cervical spine clinically correlates with patient's symptoms. Patient never had any chest pain. Return precautions reviewed with her. She desires discharge home. Discharge Plan Departure Patient Disposition: Home Clinical Impression: Cervical radiculopathy Instructions: DI for Cervical Radiculopathy Activity Restrictions/Additional Instructions: Please see your family doctor for re-evaluation and get referral for physical therapy for your neck pain that radiates to your arm called cervical radiculopathy. You will also need your family doctor to order you MRI of your neck. May continue Tylenol for your pain. Return if worse if any questions or concerns or if any chest pain Prescriptions: No Action aspirin [Adult Aspirin Regimen] 81 mg tablet,delayed release (DR/EC) 81 mg PO DAILY azelastine 137 mcg (0.1 %) aerosol,spray 1 spray intranasal BID Qty: 30 0RF Rx Instructions: administer into each nostril memantine 5 mg tablet 5 mg PO QAM Qty: 30 3RF [CoQ10] Qty: 0 [MELATONIN] Qty: 0 (DME) Blood Glucose Meter See Rx Instructions .Route .MEDSUPPLY Qty: 1 0RF Rx Instructions: Use to check Blood Glucose Twice Daily (DME) Blood Glucose Test Strips See Rx Instructions .Route .MEDSUPPLY Qty: 60 11RF Rx Instructions: Use to test blood glucose twice daily (DME) Lancets See Rx Instructions .Route .MEDSUPPLY Qty: 60 11RF Rx Instructions: Use to check blood glucose twice daily metformin 500 mg tablet extended release 24 hr See Rx Instructions .ROUTE .COMPLEX Qty: 180 1RF Dose Instruction: TAKE ONE TABLET BY MOUTH TWICE DAILY Rx Instructions: TAKE ONE TABLET BY MOUTH TWICE DAILY omeprazole 20 mg capsule,delayed release(DR/EC) 20 mg PO BID Qty: 180 3RF rosuvastatin 10 mg tablet See Rx Instructions .ROUTE .COMPLEX Qty: 90 1RF Dose Instruction: take 1 tablet by mouth once daily Rx Instructions: take 1 tablet by mouth once daily donepezil 5 mg tablet 10 mg PO BEDTIME Qty: 180 2RF lidocaine 5 % adhesive patch,medicated 1 patch topical DAILY PRN (Reason: hip pain) Qty: 30 2RF Rx Instructions: leave on most painful area for up to 12 hrs sertraline 50 mg tablet 50 mg PO DAILY Qty: 90 2RF trazodone 50 mg tablet See Rx Instructions .ROUTE .COMPLEX Qty: 30 3RF Dose Instruction: TAKE ONE TABLET EVERY DAY AT BEDTIME NEEDED FOR INSOMNIA Rx Instructions: TAKE ONE TABLET EVERY DAY AT BEDTIME NEEDED FOR INSOMNIA Referrals: Nusrat Abdi MD [Primary Care Provider] - Visit Report Forms: Patient Portal/API
--- NOTE | 2022-09-07 15:13 | DI.RAD.S_ITS ---
PROCEDURE: XR CERVICAL SPINE 2V OR 3V INDICATIONS: left side pain TECHNIQUE: 3 view(s) of the cervical spine were acquired. COMPARISON: None. FINDINGS: Bones: No fractures or dislocations to the T1 level. There is trace, 3 millimeters of C 3-C4 and 2 millimeters of C4-C5 anterolisthesis. The lateral masses of C1 appear intact on the odontoid view. No suspicious bony lesions. Severe C5-C6 degenerative disc disease. Mild C2-C3, C3-C4, C4-C5 degenerative disc disease. Moderate C3-C4 facet hypertrophy. Mild facet hypertrophy through the remainder of the cervical spine. Soft tissues: No prevertebral soft tissue swelling. IMPRESSION: 1. Multilevel degenerative disc disease. 2. Multilevel facet arthropathy. 3. No fracture. No acute osseous lesion. If symptoms and/or clinical suspicion for pathology persists, evaluation with MRI should be considered for further assessment. Dictated by: Jasmyne Crisostomo MD, PhD on 09/07/2022 at 15:39 Approved by: Jasmyne Crisostomo MD, PhD on 09/07/2022 at 15:41
[2022-09-07] MEDS: KETOROLAC 30 MG/ML VIAL 15 MG IM (15:43)
[2022-09-07 15:44] VITALS: BP 147/79; PULSE 86; RESP 16; O2SAT 97
[2022-09-07 17:51] VITALS: BP 150/79; PULSE 78; RESP 16; O2SAT 97
== END 2022-09-07 17:52 | disposition home or self-care (01) ==
PROVIDERS: Emergency Provider Emergency Medicine; PCP Family Medicine
DX: M54.12 Radiculopathy, cervical region (principal); R07.9 Chest pain, unspecified
CPT/HCPCS: 36415; 71045; 72040; 73060; 80053; 82550; 83690; 83735; 84484; 85025; 85610; 85730; 93005; 96372; 99283; 99284; J1885

== ENCOUNTER 2022-11-23 15:45 | Emergency (ER) | payer OTHER, SELFPAY ==
[2022-11-23 15:57] VITALS: BP 145/69; PULSE 87; RESP 16; TEMP 37.2; O2SAT 97; BMI 22.3
--- NOTE | 2022-11-23 16:02 | DI.RAD.S_ITS ---
PROCEDURE: XR CHEST 1V INDICATIONS: chest pain TECHNIQUE: One view of the chest was acquired. COMPARISON: [facility], , XR CHEST 1V, 09/07/2022, 10:24. FINDINGS: Moderate-sized hiatal hernia. Normal heart size. Lungs and pleural spaces clear. No suspicious bone lesion. IMPRESSION: Moderate hiatal hernia, increased from previous exam. No acute process identified. Dictated by: Dejon Campbell M.D. on 11/23/2022 at 17:35 Approved by: Dejon Campbell M.D. on 11/23/2022 at 17:37
[2022-11-23 16:41] LABS: Add Manual Diff / Slide Review NO; Basophils Absolute Auto 100 /uL (0-100); Eosinophils Absolute Auto 100 /uL (0-450); Eosinophils Percent Auto 2.2 % (2-4); Hematocrit 39.4 % (36-46); Hemoglobin 13.2 g/dL (12.0-16.0); Lymphocytes Absolute Auto 1100 /uL (1100-4500); Lymphocytes Percent Auto 16.7 % (25-40); Mean Corpuscular HGB Conc 33.5 % (30-36); Mean Corpuscular Hemoglobin 29.4 PG (26-34); Mean Corpuscular Volume 87.8 fL (80-100); Monocytes Absolute Auto 500 /uL (0-900); Neutrophils Absolute Auto 5000 /uL (1500-7000); Neutrophils Percent Auto 73.1 % (50-75); Platelet Count 192 X10^3/uL (150-400); Red Blood Cell Count 4.48 X10^6/uL (4.0-5.2); Red Cell Distribution Width 14.3 % (11.6-14.8); White Blood Cell Count 6.9 X10^3/uL (4.5-11.0)
[2022-11-23 16:44] LABS: Prothrombin Time 11.7 SECONDS (10.1-12.7)
[2022-11-23 16:47] LABS: PTT Partial Thromboplastin Tim 29 SECONDS (26-36)
[2022-11-23 16:50] LABS: Alanine Aminotransferase 17 IU/L (<35); Albumin 4.1 g/dL (3.5-5.0); Albumin Globulin Ratio 1.6 (1.0-2.8); Alkaline Phosphatase 50 U/L (38-126); Aspartate Aminotransferase 24 IU/L (14-36); BUN Creatinine Ratio 15.3 (6-22); Bilirubin Total 0.4 mg/dL (0.2-1.3); Blood Urea Nitrogen 20 mg/dL (7-17); Carbon Dioxide 23 mmol/L (22-32); Chloride 106 mmol/L (98-107); Creatine Kinase 59 U/L (30-135); Estimated Glomerular Filt Rate 39 mL/min (>60); Globulin 2.5 g/dL (1.7-4.1); Glucose 175 mg/dL (80-110); HEMOLYSIS 38 (0-50); Lipase 172 U/L (23-300); Magnesium 1.4 mg/dL (1.6-2.3); Potassium 4.3 mmol/L (3.4-5.1); Sodium 139 mmol/L (137-145); Total Protein 6.6 g/dL (6.3-8.2)
[2022-11-23 17:02] LABS: Troponin I < 0.012 ng/mL (0.01-0.034)
--- NOTE | 2022-11-23 18:43 | ED.CHESTPAIN ---
HPI - Chest Pain General Chief Complaint: Chest Pain Stated Complaint: chest and left arm pain Time Seen by Provider: 11/23/22 18:04 Source: patient Mode of arrival: Ambulatory History of Present Illness HPI narrative: Patient is a 87-year-old female history of diabetes chronic neck pain presenting today with left arm and shoulder pain. She reports that she has had ongoing left shoulder pain however today the pain was creeping down her arm. Sometimes it is tingly sometimes not. She denies any chest pain or shortness of breath. She reports hearing sometimes arm pain can be related to heart so she wanted to come get checked out. She denies any nausea vomiting shortness of breath abdominal pain or other symptoms. Related Data Home Medications Medication Instructions Recorded Confirmed [CoQ10] ##0 08/30/16 11/05/22 [MELATONIN] ##0 08/30/16 11/05/22 aspirin 81 mg tablet,delayed 81 mg PO DAILY 05/20/20 11/05/22 release (Adult Aspirin Regimen) Previous Rx's Medication Instructions Recorded Blood Glucose Meter #1 ea 01/02/21 Blood Glucose Test Strips #60 ea 01/02/21 Lancets #60 ea 01/02/21 omeprazole 20 mg capsule,delayed 20 mg PO BID #180 caps 10/09/21 release lidocaine 5 % topical patch 1 patch topical DAILY PRN hip pain 03/22/22 #30 ea sertraline 50 mg tablet 50 mg PO DAILY #90 tabs 04/06/22 trazodone 50 mg tablet See Rx Instructions .Route 04/06/22 .COMPLEX #30 tabs azelastine 137 mcg (0.1 %) nasal 1 spray intranasal BID #30 mL 05/11/22 spray aerosol memantine 5 mg tablet 5 mg PO QAM #30 tabs 09/16/22 rosuvastatin 10 mg tablet See Rx Instructions .Route 10/12/22 .COMPLEX #90 tabs metformin 500 mg tablet,extended See Rx Instructions .Route 10/13/22 release 24 hr .COMPLEX #180 tabs donepezil 5 mg tablet See Rx Instructions .Route 10/21/22 .COMPLEX #180 tabs Allergies Allergy/AdvReac Type Severity Reaction Status Date / Time No Known Drug Allergies Allergy Verified 11/05/22 09:27 Review of Systems Review of Systems ROS Unobtainable: All systems reviewed & are unremarkable except as noted in HPI and below Patient History Medical History Asthma Chicken pox Dementia Depression DM type 2 (diabetes mellitus, type 2) Foot pain Hyperlipidemia Measles Measles Mumps Mumps Seasonal allergies Shoulder pain Varicella Vision disorder Surgical History Anesthesia H/O knee surgery History of hip surgery Hx of breast cancer Family History Father Heart disease Mother Cancer Stroke Dementia Brother COPD (chronic obstructive pulmonary disease) Diabetes mellitus Stroke Dementia Brother Stroke Diabetes mellitus Social History marital status: number of children: 2 household members: spouse lives independently: Yes caregiver/support person: No pets and animals: No education level: college occupational status: previously employed current occupational exposures/hazards: No raul/faith: Moravian special raul needs: No leisure activities: art seatbelt use: always working smoke detector in home: Yes fire extinguisher in home: No carbon monox detector in home: No firearms in home: Yes firearms unloaded and locked: Yes do you feel safe at home: Yes Smoking Status: Never smoker alcohol intake: current substance use type: does not use during the past year weight has: increased > 10 lbs well-balanced diet: daily or most days caffeine: Yes eating out: 1-3 times/week Type(s) of exercise: walking frequency: 5-6 times per week duration: 30-45 minutes/day Smoking Status: Never smoker alcohol intake frequency: holidays/special occasions only Alcohol type: wine Substance Use Type: does not use Exam Initial Vital Signs Initial Vital Signs: Vital Signs Temperature 98.9 F 11/23/22 15:57 Pulse Rate 87 11/23/22 15:57 Respiratory Rate 16 11/23/22 15:57 Blood Pressure 145/69 H 11/23/22 15:57 Pulse Oximetry 97 11/23/22 15:57 Oxygen Delivery Method Room Air 11/23/22 15:57 GENERAL: Alert pleasant slightly hard of hearing 87-year-old female and in no acute distress. HEENT: Head atraumatic,EOMI, pupils reactive, face symmetric, moist mucous membranes CARDIOVASCULAR: Regular rate and rhythm without murmurs, rubs or gallops. RESPIRATORY: Breath sounds equal bilaterally, no wheezes rales or rhonchi. ABDOMEN: Soft, nontender. Normoactive bowel sounds all 4 quadrants. No guarding or rebound. EXTREMITIES: Normal range of motion, no clubbing or edema. Neurovascularly intact Mild left shoulder pain, slightly reproducible with palpation and movement. Distal radial pulse intact no erythema or rash NEUROLOGICAL: Alert and oriented x4. SKIN: Warm, dry, no laceration, no petechiae, no rashes or lesions. Course Orders Ordered: Discontinued Medications Aspirin (Aspirin 81 Mg Chew Tab) 324 mg PO NOW ONE Stop: 11/23/22 16:03 Vital Signs Vital signs: Vital Signs - 8 hr 11/23/22 15:57 Temperature 98.9 F Pulse Rate 87 Respiratory Rate 16 Blood Pressure 145/69 H Pulse Oximetry 97 Oxygen Delivery Method Room Air MDM - Chest Pain Lab Data 11/23/22 16:27 11/23/22 16:27 Labs: Lab Results 11/23/22 11/23/22 11/23/22 Range/Units 16:27 16:27 16:27 WBC 6.9 (4.5-11.0) X10^3/uL RBC 4.48 (4.0-5.2) X10^6/uL Hgb 13.2 (12.0-16.0) g/dL Hct 39.4 (36-46) % MCV 87.8 (80-100) fL MCH 29.4 (26-34) PG MCHC 33.5 (30-36) % RDW 14.3 (11.6-14.8) % Plt Count 192 (150-400) X10^3/uL Neut % (Auto) 73.1 (50-75) % Lymph % (Auto) 16.7 L (25-40) % Patrick % (Auto) 7.0 (3-14) % Eos % (Auto) 2.2 (2-4) % Baso % (Auto) 1.0 (0-2) % Neut # (Auto) 5000 (0295-0279) /uL Lymph # (Auto) 1100 (1356-9272) /uL Patrick # (Auto) 500 (0-900) /uL Eos # (Auto) 100 (0-450) /uL Baso # (Auto) 100 (0-100) /uL PT 11.7 (10.1-12.7) SECONDS INR 1.0 (0.9-1.3) APTT 29 (26-36) SECONDS Sodium 139 (137-145) mmol/L Potassium 4.3 (3.4-5.1) mmol/L Chloride 106 (98-107) mmol/L Carbon Dioxide 23 (22-32) mmol/L BUN 20 H (7-17) mg/dL Creatinine 1.31 H (0.52-1.04) mg/dL Estimated GFR 39 L (>60) mL/min BUN/Creatinine Ratio 15.3 (6-22) Glucose 175 H (80-110) mg/dL Calcium 9.0 (8.4-10.2) mg/dL Magnesium 1.4 L (1.6-2.3) mg/dL Total Bilirubin 0.4 (0.2-1.3) mg/dL AST 24 (14-36) IU/L ALT 17 (<35) IU/L Alkaline Phosphatase 50 (38-126) U/L Total Creatine Kinase 59 (30-135) U/L CK-MB (CK-2) TNP CK-MB (CK-2) Rel Index TNP Troponin I < 0.012 (0.01-0.034) ng/mL Total Protein 6.6 (6.3-8.2) g/dL Albumin 4.1 (3.5-5.0) g/dL Globulin 2.5 (1.7-4.1) g/dL Albumin/Globulin Ratio 1.6 (1.0-2.8) Lipase 172 (23-300) U/L Imaging Data Chest x-ray: Radiologist's Impression: PROCEDURE:? XR CHEST 1V ? INDICATIONS:? chest pain ? TECHNIQUE:? One view of the chest was acquired.? ? COMPARISON:? [facility], , XR CHEST 1V, 09/07/2022, 10:24. ? FINDINGS:? Moderate-sized hiatal hernia.? Normal heart size.? Lungs and pleural spaces clear.? No suspicious bone lesion. ? IMPRESSION:? Moderate hiatal hernia, increased from previous exam.? No acute process identified. ? ? Dictated by: Dejon Campbell M.D. on 11/23/2022 at 17:35 ? ? Approved by: Dejon Campbell M.D. on 11/23/2022 at 17:37 ? ECG Data Interpretation: Normal sinus rhythm rate 87 MT interval 132 QRS [address] changes similar to previous EKGs Q-waves noted inferiorly and anteriorly remain unchanged from previous MDM Narrative Medical decision making narrative: Patient 87-year-old female history of diabetes arthritis chronic neck pain hyperlipidemia presents today with left arm pain. Worse with movement and palpation. Having some aching in her arm along with some numbness tingling. Troponin negative EKG negative. I suspect more musculoskeletal rather than cardiac. She denies any cardiac history I am not seeing any in her chart. Blood work is overall reassuring troponin negative no electrolyte abnormality no FAUSTINO no leukocytosis or anemia. Patient would really like to go home. Discharge Plan Departure Patient Disposition: Home Clinical Impression: Atypical chest pain Instructions: DI for Atypical Chest Pain Activity Restrictions/Additional Instructions: *You have been diagnosed with atypical chest pain *What to do: At this time I think her arm pain is related more to her osteoarthritis. However I do recommend that you have further cardiac testing with her PCP including echo and stress test. *Continue to take medications as directed Tylenol 650 mg every 4-6 hours if needed for [id number] pain *Follow up with your primary care provider in 2-3 days or call [phone] *Return to ER if you should have increasing left arm pain chest pain shortness of breath or any new, worsening or concerning symptoms Prescriptions: No Action aspirin [Adult Aspirin Regimen] 81 mg tablet,delayed release (DR/EC) 81 mg PO DAILY azelastine 137 mcg (0.1 %) aerosol,spray 1 spray intranasal BID Qty: 30 0RF Rx Instructions: administer into each nostril memantine 5 mg tablet 5 mg PO QAM Qty: 30 3RF [CoQ10] Qty: 0 [MELATONIN] Qty: 0 (DME) Blood Glucose Meter See Rx Instructions .Route .MEDSUPPLY Qty: 1 0RF Rx Instructions: Use to check Blood Glucose Twice Daily (DME) Blood Glucose Test Strips See Rx Instructions .Route .MEDSUPPLY Qty: 60 11RF Rx Instructions: Use to test blood glucose twice daily (DME) Lancets See Rx Instructions .Route .MEDSUPPLY Qty: 60 11RF Rx Instructions: Use to check blood glucose twice daily omeprazole 20 mg capsule,delayed release(DR/EC) 20 mg PO BID Qty: 180 3RF lidocaine 5 % adhesive patch,medicated 1 patch topical DAILY PRN (Reason: hip pain) Qty: 30 2RF Rx Instructions: leave on most painful area for up to 12 hrs sertraline 50 mg tablet 50 mg PO DAILY Qty: 90 2RF trazodone 50 mg tablet See Rx Instructions .ROUTE .COMPLEX Qty: 30 3RF Dose Instruction: TAKE ONE TABLET EVERY DAY AT BEDTIME NEEDED FOR INSOMNIA Rx Instructions: TAKE ONE TABLET EVERY DAY AT BEDTIME NEEDED FOR INSOMNIA rosuvastatin 10 mg tablet See Rx Instructions .ROUTE .COMPLEX Qty: 90 0RF Dose Instruction: TAKE ONE TABLET BY MOUTH ONE TIME DAILY Rx Instructions: TAKE ONE TABLET BY MOUTH ONE TIME DAILY metformin 500 mg tablet extended release 24 hr See Rx Instructions .ROUTE .COMPLEX Qty: 180 0RF Dose Instruction: TAKE ONE TABLET BY MOUTH TWICE DAILY Rx Instructions: TAKE ONE TABLET BY MOUTH TWICE DAILY donepezil 5 mg tablet See Rx Instructions .ROUTE .COMPLEX Qty: 180 0RF Dose Instruction: TAKE TWO TABLETS BY MOUTH NIGHTLY AT BEDTIME Rx Instructions: TAKE TWO TABLETS BY MOUTH NIGHTLY AT BEDTIME Referrals: Nusrat Abdi MD [Primary Care Provider] - Stand Alone Forms: Patient Portal/API
[2022-11-23 19:02] VITALS: BP 127/62; PULSE 67; O2SAT 96
== END 2022-11-23 19:04 | disposition home or self-care (01) ==
PROVIDERS: Emergency Medicine; Emergency Provider Emergency Medicine; PCP Family Medicine
DX: R07.89 Other chest pain (principal); R20.2 Paresthesia of skin; Z79.899 Other long term (current) drug therapy
CPT/HCPCS: 36415; 71045; 80053; 82550; 83690; 83735; 84484; 85025; 85610; 85730; 93005; 93010; 99283; 99284

== ENCOUNTER → 2023-03-17 14:51 | Outpatient (CLI) | payer OTHER, SELFPAY ==
--- NOTE | 2023-03-17 14:53 | DI.RAD.S_ITS ---
PROCEDURE: XR HUMERUS LT 2V INDICATIONS: Left humeral pain TECHNIQUE: To views of the humerus were acquired. COMPARISON: [facility], CR, XR HUMERUS LT 2V, 09/07/2022, 10:24. FINDINGS: Bones: No fractures or dislocations. No suspicious bony lesions. Severe left glenohumeral joint osteoarthritis. Soft tissues: No suspicious soft tissue calcifications. Left breast surgical clips. IMPRESSION: No fracture. No acute osseous lesion. If symptoms and/or clinical suspicion for pathology persists, further assessment with repeat radiographs (7-10 days) or advanced imaging (e.g. CT, MRI or bone scan) should be considered. Dictated by: Jasmyne Crisostomo MD, PhD on 03/17/2023 at 16:14 Approved by: Jasmyne Crisostomo MD, PhD on 03/17/2023 at 16:15
== END ==
PROVIDERS: PCP Family Medicine; Referring Provider Nurse Practitioner Family; Visit Provider Nurse Practitioner Family
DX: M79.622 Pain in left upper arm (principal); M19.012 Primary osteoarthritis, left shoulder
CPT/HCPCS: 73060

== ENCOUNTER → 2023-03-31 11:21 | Outpatient (CLI) | payer OTHER, SELFPAY ==
--- NOTE | 2023-03-31 11:23 | DI.RAD.S_ITS ---
PROCEDURE: XR HIP W PEL IF DONE LT MIN 4V INDICATIONS: Left hip pain for several months; suspect OA TECHNIQUE: AP pelvis and lateral view of the left hip acquired. COMPARISON: [facility], CR, XR PELVIS WITH LATERAL HIP LEFT, 04/27/2022, 13:57. [facility], CR, HIP 2V RIGHT, 06/07/2007, 8:44. FINDINGS: Bones: Patient is status post right hip arthroplasty, with hardware components in expected positions. The hip joint appears congruent. The visualized bony structures appear intact. There is severe narrowing of the left hip joint with near bone on bone contact, subchondral sclerosis and cystic change. Periarticular osteophyte formation is present. Degenerative disc and facet disease involves the inferior lumbar spine. Soft tissues: Overlying postoperative changes are noted. No suspicious soft tissue densities. IMPRESSION: 1. Prior right hip arthroplasty incompletely evaluated. 2. Severe left hip joint degeneration similar prior examination. Dictated by: Eulalio GODWIN Interpreted: Nguyễn Romeo MD on 03/31/2023 at 13:25 Transcribed by: ABBY on 03/31/2023 at 13:26 Approved by: Nguyễn Romeo M.D. on 03/31/2023 at 17:12
== END ==
PROVIDERS: PCP Family Medicine; Referring Provider Physician Assistant; Visit Provider Physician Assistant
DX: M16.12 Unilateral primary osteoarthritis, left hip (principal); M25.552 Pain in left hip; Z96.641 Presence of right artificial hip joint
CPT/HCPCS: 73522

== ENCOUNTER → 2023-04-13 10:42 | Outpatient (CLI) | payer OTHER, SELFPAY ==
[2023-04-13 11:33] LABS: Alanine Aminotransferase 19 IU/L (<35); Albumin 3.8 g/dL (3.5-5.0); Albumin Globulin Ratio 1.5 (1.0-2.8); Alkaline Phosphatase 71 U/L (38-126); Aspartate Aminotransferase 25 IU/L (14-36); BUN Creatinine Ratio 18.8 (6-22); Bilirubin Total 0.5 mg/dL (0.2-1.3); Blood Urea Nitrogen 27 mg/dL (7-17); Calcium 8.7 mg/dL (8.4-10.2); Carbon Dioxide 21 mmol/L (22-32); Chloride 111 mmol/L (98-107); Cholesterol 227 mg/dL (140-199); Estimated Glomerular Filt Rate 35 mL/min (>60); Globulin 2.5 g/dL (1.7-4.1); Glucose 151 mg/dL (80-110); HDL Cholesterol 71 mg/dL (40-60); HEMOLYSIS < 15 (0-50); LDL Cholesterol Calculated 138 mg/dL (<100); Potassium 4.2 mmol/L (3.4-5.1); Sodium 138 mmol/L (137-145); Total Protein 6.3 g/dL (6.3-8.2); Triglycerides 91 mg/dL (35-150)
[2023-04-13 12:28] LABS: Creatinine Urine Random 185.4 mg/dL
[2023-04-13 12:32] LABS: Microalbumi Creatinin Ratio Ur 16.1 ug/mg CR (<30)
== END ==
PROVIDERS: PCP Family Medicine; Visit Provider Physician Assistant
DX: R74.8 Abnormal levels of other serum enzymes (principal); E88.09 Other disorders of plasma-protein metabolism, not elsewhere classified; E11.9 Type 2 diabetes mellitus without complications
CPT/HCPCS: 80053; 80061; 82043; 82570